=== PATIENT | female | born 1980 | race Caucasian/White ===

== ENCOUNTER 2018-07-04 11:36 | Day surgery (SDC) | payer BC, OTHER ==
[2018-07-04] MEDS ORDERED: ceFAZolin 2 GM/DEXTROSE 100 ML IV ONE (11:56)
[2018-07-04] MEDS ORDERED: LIDOCAINE 1% 2 ML INJ ID PRN (11:56)
[2018-07-04] MEDS ORDERED: LR 1,000 ML IV ONE (11:56)
--- NOTE | 2018-07-04 11:57 | PDHPUP ---
History & Physical Update H&P update statement: This history and physical update is based on an assessment of the patient which was completed after admission or registration (within 24 hours), but prior to the surgery/procedure. H&P update: H&P reviewed & patient examined, no change in patient's condition since H&P completed
[2018-07-04] MEDS ORDERED: BUPIVACAINE/EPI 0.5% 30 ML SDV ONE (12:39)
[2018-07-04] MEDS ORDERED: MIDAZOLAM 2 MG/2 ML VIAL IVP ONE (12:51)
[2018-07-04] MEDS ORDERED: MIDAZOLAM 2 MG/2 ML VIAL ONE (12:52)
--- NOTE | 2018-07-04 12:53 | PDANEPAE ---
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 - still can have symptoms with exercise but no MDI or treatment - Neurologic History Hx Cerebrovascular Accident: No Hx Seizures: No Hx Dementia: No - Endocrine History Hx Diabetes: No Obesity: moderate - Renal History Hx Renal Disorders: No - Liver History Hx Hepatic Disorders: No - Neurological & Psychiatric Hx Hx Neurological and Psychiatric Disorders: No - Cancer History Hx Cancer: No - Congenital Disorder History Hx Congenital Disorders: No - GI History GERD: no Hx Gastrointestinal Disorders: No Gastrointestinal History Comment: states has had some intermittent bouts of diarrhea/constipation since hernia appeared but nothing chronic - Other Health History Other Health History: wears glasses - Chronic Pain History Chronic Pain: No - Surgical History Prior Surgeries: x3. ectopic surgery. wisdom teeth extraction ANE Review of Systems Review of Systems: - Exercise capacity METS (RN): 4 METS ANE Patient History - Allergies Allergies/Adverse Reactions: morphine Allergy (Verified 07/04/18 12:22) Vomiting, doesnt heal shellfish derived Allergy (Verified 07/02/18 11:52) Vomiting chromic sutures Allergy (Uncoded 07/02/18 11:52) sutured area wouldn't heal, extreme scarring CT Contrast Allergy (Uncoded 07/02/18 11:52) Swelling/neck,face,throat - Home Medications Home medications: home medication list seen and reviewed Home Medications: NK [No Known Home Meds] 07/02/18 [Last Taken Unknown] - NPO status NPO Status: no food or drink >8 hours NPO Since - Liquids (Date): 07/04/18 NPO Since - Liquids (Time): 10:00 NPO Since - Solids (Date): 07/03/18 NPO Since - Solids (Time): 21:30 - Anes Hx Anes Hx: no prior problems - Smoking Hx Smoking Status: Never smoked - Family Anes Hx Family Hx Anesthesia Complications: none ANE Labs/Vital Signs - Vital Signs Blood Pressure: 123/80 Heart Rate: 73 Respiratory Rate: 16 O2 Sat (%): 98 Height: 149.86 cm Weight: 79.379 kg ANE Physical Exam - Airway Neck exam: FROM Mallampati Score: Class 2 Mouth exam: normal dental/mouth exam - Pulmonary Pulmonary: no respiratory distress, no rales or rhonchi, clear to auscultation - Cardiovascular Cardiovascular: regular rate and rhythym, no murmur, rub, or gallop - ASA Status ASA Status: I ANE Anesthesia Plan Anesthesia Plan: general endotracheal anesthesia
[2018-07-04] MEDS ORDERED: LIDOCAINE 2% 2 ML INJ ONE (13:05)
[2018-07-04] MEDS ORDERED: PROPOFOL 200 MG/20 ML VIAL ONE (13:05)
[2018-07-04] MEDS ORDERED: fentaNYL 100 MCG/2 ML INJ ONE ×3 (13:05→16:34)
[2018-07-04] MEDS ORDERED: DEXAMETHASONE 4 MG/ML VIAL ONE ×2 (13:06)
[2018-07-04] MEDS ORDERED: ROCURONIUM 50 MG/5 ML VIAL ONE ×2 (13:06→14:46)
[2018-07-04] MEDS ORDERED: ONDANSETRON 4 MG/2 ML VIAL ONE ×2 (13:06→15:40)
[2018-07-04] MEDS ORDERED: KETOROLAC 30 MG/1 ML SDV ONE (13:06)
[2018-07-04] MEDS ORDERED: GLYCOPYRROLATE 0.2 MG/1 ML VIAL ONE ×2 (13:22→15:26)
[2018-07-04] MEDS ORDERED: HYDROCODONE/APAP 5/325 TAB PO PRN (14:19)
[2018-07-04] MEDS ORDERED: ACETAMINOPHEN 500 MG TAB PO PRN (14:19)
[2018-07-04] MEDS ORDERED: NALOXONE HCL 0.4 MG/ML INJ IVP PRN (14:19)
[2018-07-04] MEDS ORDERED: MEPERIDINE 25 MG/0.5 ML AMP IVP PRN (14:19)
[2018-07-04] MEDS ORDERED: DIAZEPAM 5 MG/ML 1 ML SYR IVP PRN (14:19)
[2018-07-04] MEDS ORDERED: PROMETHAZINE HCL 25 MG/ML INJ IVP PRN (14:19)
[2018-07-04] MEDS ORDERED: ONDANSETRON 4 MG/2 ML VIAL IVP PRN (14:19)
--- NOTE | 2018-07-04 15:32 | POSTOPPROG ---
Post Op Note Date of Operation: 07/04/18 Surgeon: Jeffrey Santana Foundry Finisher: Ros Matt NP Anesthesiologist: Suni Anesthesia: GET(General Endotracheal) Pre-op Diagnosis: Ventral hernia, Diastasis Post-op Diagnosis: Ventral hernia x2, Diastasis Procedure: Robotic assisted ventral hernia repair c diastasis repair Findings: 1cm umblical defect, 3cm supraumbilical defect Inf/Abcess present in the surg proc area at time of surgery?: No EBL: Minimal
--- NOTE | 2018-07-04 15:42 | POSTANESTH ---
Post Anesthetic Evaluation Cardiovascular Status: Normal, Stable, Similar to Pre-Op Cond Respiratory Status: Normal, Stable, Similar to Pre-op Cond. Level of Consciousness/Mental Status: Can Participate in Eval, Mildly Sleepy, Arousable Pain Control: Adequate, Prn Tx Ordered Nausea/Vomiting Control: Inadeq, Add Tx Reqired Complications Possibly Related to Anesthesia: None Noted
[2018-07-04] MEDS: fentaNYL 100 MCG/2 ML INJ IVP PRN ×3 (15:44→16:35)
[2018-07-04] MEDS: LR 500 ML IV PRN ×2 (15:44→16:01)
[2018-07-04] MEDS ORDERED: oxyCODONE IR 5 MG TAB ONE ×2 (16:03→16:08)
[2018-07-04] MEDS ORDERED: ACETAMINOPHEN 500 MG TAB ONE (16:03)
[2018-07-04] MEDS: oxyCODONE IR 5 MG TAB PO PRN ×2 (16:05→16:08)
[2018-07-04 17:31] VITALS: BP 109/61
--- NOTE | 2018-07-11 14:49 | GOP ---
DATE OF OPERATION: 07/04/2018 SURGEON: Jeffrey Santana MD [employer] DEPARTMENT MANAGER: Ros Pang NP ANESTHESIA: General endotracheal ANESTHESIOLOGIST: Javier Culp MD PREOPERATIVE DIAGNOSIS: Ventral hernia and abdominal diastasis. POSTOPERATIVE DIAGNOSIS: Ventral hernia x2 with abdominal diastasis. PROCEDURE PERFORMED: Robotic-assisted ventral hernia repair with imbrication of diastasis. FINDINGS: There was a 1 cm abdominal umbilical defect and a 3 cm defect superior to this. The diast asis measured approximately 3 cm and went from the xiphoid down to the pubis. SPECIMENS: None. ESTIMATED BLOOD LOSS: 5 cc. DESCRIPTION OF PROCEDURE: The patient was greeted in the preoperative suite. Once again, risks, isra efits, and alternatives were discussed. The consent was signed. She was then brought back to the op erative suite, placed on the OR table in supine position. After all anesthesia machines including SC Ds were on and functioning, [facility] time-out was performed. After successful induc tion of general anesthesia, the patient's abdomen was prepped and draped in typical sterile fashion. I commenced the procedure by making a stab incision in the left upper quadrant through which the Tello ess needle was passed. I achieved pneumoperitoneum to 15 mmHg which was well tolerated by the patien t. Once this was done, I initially inserted an 8 mm trocar in the left upper quadrant. Once success fully in the abdomen, I placed 2 additional 8 mm trocars, one in the left lower quadrant and one in t he midline in the left abdomen. Both of these were done under direct visualization. The robot was t hen successfully docked. I did have to take part of the falciform and the peritoneum down in order t o visualize the defect on the cranial end. Once the entire diastasis was identified, I turned my att ention toward the patient's mid abdomen. There was an approximate 1 cm defect at the level of the um bilicus. Just superior to this, there was a 3 cm defect with a tissue bridge in between it, giving a Vietnamese cheese defect. I turned my attention first toward these defects using a #1 Stratafix suture I successfully reapproximated the umbilical and the supraumbilical defects, noting excellent fascial r eapproximation under minimal tension. I then turned my attention toward imbrication of the diastasis . Starting at the level of the xiphoid, I identified the 2 edges of the rectus and sewed the posteri or sheath together in a craniocaudal fashion. I stopped at the level of the umbilicus, inserted the 2nd suture inferiorly, and ran this to the midline as well. This overlapped somewhat. This showed g ood overlap and complete resolution of the diastasis. I found no other significant findings. Pneumo peritoneum was then evacuated. I removed my ports and closed the skin with Monocryl. Dermabond was placed. The patient was then extubated in the operative suite and taken to the PACU in satisfactory condition. DRAINS: None. COUNTS: All counts were reported as correct x2. /[id number]/MODL
== END 2018-07-04 17:58 | disposition home or self-care (01) ==
LOC: FSGY 11:36
PROVIDERS: ATTEND Surgery
DX: K43.9 Ventral hernia without obstruction or gangrene (principal); M62.08 Separation of muscle (nontraumatic), other site; Z87.09 Personal history of other diseases of the respiratory system
CPT/HCPCS: J0690; J1100; J1885; J2250; J2405; J2704; J3010

== ENCOUNTER 2018-07-08 07:10 | Inpatient (IN) | payer OTHER ==
--- NOTE | 2018-07-08 07:39 | EDPHY ---
H & P Stated Complaint: n/v s/p umbilical hernia surgery Time Seen by Provider: 07/08/18 07:38 - Personal History LMP (Females 10-55): 22-28 Days Ago Current Tetanus/Diphtheria Vaccine: Unsure Current Tetanus Diphtheria and Acellular Pertussis (TDAP): Unsure - Medical/Surgical History Hx Asthma: No Hx Chronic Respiratory Disease: No Hx Diabetes: No Hx Cardiac Disease: No Hx Renal Disease: No Hx Cirrhosis: No Hx Alcoholism: No Hx HIV/AIDS: No Hx Splenectomy or Spleen Trauma: No Other PMH: umbilical hernia repair, x 3 , ectopic , asthma - Social History Smoking Status: Never smoked Constitutional: Initial Vital Signs Temperature (C) 37.3 C 07/08/18 07:14 Heart Rate 93 07/08/18 07:14 Respiratory Rate 20 07/08/18 07:14 Blood Pressure 126/85 H 07/08/18 07:14 O2 Sat (%) 95 07/08/18 07:14 O2 Delivery Mode Room Air Allergies/Adverse Reactions: morphine Allergy (Verified 07/08/18 07:14) Vomiting, doesnt heal shellfish derived Allergy (Verified 07/08/18 07:14) Vomiting chromic sutures Allergy (Uncoded 07/08/18 07:14) sutured area wouldn't heal, extreme scarring CT Contrast Allergy (Uncoded 07/08/18 07:14) Swelling/neck,face,throat Home Medications: Medication Instructions Recorded LORazepam [Ativan (*)] 1 mg PO Q6HRS PRN 07/08/18 Ondansetron Odt [Zofran Odt 4 mg 4 mg PO Q4HRS PRN 07/08/18 (*)] oxyCODONE IR [Oxycodone Ir (*)] 5 mg PO Q6HRS PRN 07/08/18 Medical Decision Making - Diagnostics Imaging Results: Imaging Impressions Abdomen/Pelvis CT 07/08/18 07:45 Impression: 1. Small bowel obstruction secondary to tiny periumbilical hernia, adhesions, or other etiology. 2. Tiny pleural effusions with basilar atelectasis. 3. Mild subcutaneous stranding in the left abdomen, which could be related to postoperative hemorrhage, with no focal hematoma. 4. Additional findings as above. Findings discussed with Rogelio Kowalski MD on 07/08/2018 at 8:54 a.m. Attention: This examination does not use radiographic contrast and provides only a limited evaluation of the abdomen, pelvis and retroperitoneum. Imaging: Discussed imaging studies w/ orthopedically impaired teacher Radiologist ED Course/Re-evaluation: CHIEF COMPLAINT: Nausea HISTORY OF PRESENT ILLNESS: This patient is a 37 year old female who is s/p robotic assisted ventral hernia repair with diastasis repair on 07/04/[address] Santana. Initially when she arrived home she returned to a normal diet. She began vomiting on Saturday evening and was evaluated at the [facility] ER. Per her at bedside, blood work and plain x-rays of the abdomen were "unremarkable". She was discharged home with Tete. Dr. Valenzuela, general surgeon, checked in with the patient by phone on Saturday morning and switched her from narcotic pain medications to lorazepam, and a liquid diet. The patient reports she had not had a bowel movement or passed gas. Late on Saturday evening the patient developed a fever of 100.5. Later that evening, she began vomiting again, and this morning, she presents for evaluation. She had not noted any erythema or discharge around the surgical sites. She does complain of abdominal discomfort, primarily periumbilical. No chest pain, shortness of breath, syncope, or other associated symptoms. REVIEW OF SYSTEMS: A comprehensive 10 system review of systems is otherwise negative aside from elements mentioned in the history of present illness and medical decision making. PHYSICAL EXAM: HR, BP, O2 Sat, RR. Temp noted General Appearance: Alert, well hydrated, appropriate, and non-toxic appearing. Head: Atraumatic without scalp tenderness or obvious injury Eyes: Pupils equal, round, reactive to light and accommodation, EOMI, no trauma , no injection. Ears: Clear bilaterally, no perforation, normal landmarks Nose: Atraumatic, no rhinorrhea, clear. Throat: There is no erythema or exudates, no lesions, normal tonsils, mucus membranes moist. Neck: Supple, 2+ carotid upstroke, nontender, no lymphadenopathy. Respiratory: No retractions, no distress, no wheezes, and no accessory muscle use. Lungs are clear to auscultation bilaterally. Cardiovascular: Regular rate and rhythm, no murmurs, rubs, or gallops. Bilateral carotid, radial, dorsalis pedis, and posterior tibial pulses intact. Good capillary refill all extremities. Gastrointestinal: Abdomen is distended, diffusely tender. There are well- healing laparoscopic incisions with no evidence of erythema, discharge, or warmth. Musculoskeletal: Normal active ROM of all extremities, atraumatic. Neurological: Alert, appropriate, and interactive. The patient has normal DTRs and non-focal cranial nerves, motor, sensory, and cerebellar exam. Skin: No rashes, good turgor, no nodules on palpation. Past medical history: Asthma. Ectopic . Past surgical history: Umbilical hernia repair. Cesarian section x 3. Family history: Noncontributory. Social history: . at bedside. Employed. DIFFERENTIAL DIAGNOSIS: The differential diagnosis for the patient's abdominal pain included but was not limited to small bowel obstruction, hernia, ovarian cyst, pelvic inflammatory disease, ovarian torsion, urinary tract infection, ectopic , cholecystitis, and appendicitis. MEDICAL DECISION [id number] y/o female 4 days s/p ventral hernia and diastasis repair presents with abdominal discomfort, nausea, and vomiting. No outward evidence of infection, there are well-healing laparoscopic incisions. Abdomen is distended and diffusely tender to palpation. Patient states she is allergic to IV contrast. Plan for CT abdomen/pelvis without contrast for further evaluation. IV established. Plan to administer 1mg IV Dilaudid, 30mg IV Toradol, and 4mg IV Zofran for symptom relief. Plan for labs including CBC, chemistries, liver, lipase. Consulted with Dr. Santana, general surgeon. He will evaluate the patient. 08:[address] Cervantes, radiologist. CT shows evidence of small bowel obstruction. 9:17 Dr. Santana accepts admission for perioperative management for the patient's small bowel obstruction. IV access obtained 10:30 but unable to draw bloods. - Data Points Medications Given: Discontinued Medications Hydromorphone HCl (Dilaudid) 1 mg IVP EDNOW ONE Stop: 07/08/18 07:46 Last Admin: 07/08/18 08:19 Dose: 1 mg Sodium Chloride (Ns) 1,000 mls @ 0 mls/hr IV EDNOW ONE; Wide Open PRN Reason: Protocol Stop: 07/08/18 07:46 Last Admin: 07/08/18 08:20 Dose: 1,000 mls Ketorolac Tromethamine (Toradol) 30 mg IVP EDNOW ONE Stop: 07/08/18 07:46 Last Admin: 07/08/18 08:20 Dose: 30 mg Ondansetron HCl (Zofran) 4 mg IVP EDNOW ONE Stop: 07/08/18 07:46 Last Admin: 07/08/18 08:20 Dose: 4 mg Departure - Departure Disposition: [facility] Inpatient Acute Clinical Impression: Small bowel obstruction Condition: Fair Report Scribed for: Rogelio Kowalski Report Scribed by: Radha Martin Date of Report: 07/08/18 Time of Report: 09:51
[2018-07-08] MEDS ORDERED: KETOROLAC 30 MG/1 ML SDV IVP ONE (07:45)
[2018-07-08] MEDS ORDERED: NS 1,000 ML IV ONE (07:45)
[2018-07-08] MEDS ORDERED: HYDROmorphONE/DILAUDID 2 MG/ML INJ IVP ONE (07:45)
[2018-07-08] MEDS ORDERED: ONDANSETRON 4 MG/2 ML VIAL IVP ONE (07:45)
[2018-07-08] MEDS ORDERED: HYDROmorphONE/DILAUDID 1 MG/ML INJ IVP PRN (09:17)
[2018-07-08] MEDS ORDERED: PROMETHAZINE HCL 25 MG/ML INJ IVP PRN (09:17)
[2018-07-08] MEDS ORDERED: ONDANSETRON 4 MG/2 ML VIAL IVP PRN ×2 (09:17→14:42)
[2018-07-08] MEDS ORDERED: ACETAMINOPHEN 325 MG TAB PO PRN (09:17)
[2018-07-08] MEDS ORDERED: ONDANSETRON DISINTEGRATING 4 MG TAB PO PRN (09:17)
--- NOTE | 2018-07-08 09:38 | PDGENHP ---
History and Physical - Chief Complaint abdominal pain with nausea and vomiting - History of Present Illness 37yo F who underwent robotic assisted ventral hernia and diastasis repair last Saturday. Had some obstructive type symptoms Saturday night and was seen at [facility] where plain films were ordered along with bloodwork. These labs were reassuring and she was subsequently sent home. Since then felt well for about a day but started to get worse last night. Called in this AM and was directed to the ED for workup. In the ED, c/o focal periumbilical pain with nausea and vomiting which has been colicky. Denies fevers or chills. History Information - Allergies/Home Medication List Allergies/Adverse Reactions: morphine Allergy (Verified 07/08/18 07:14) Vomiting, doesnt heal shellfish derived Allergy (Verified 07/08/18 07:14) Vomiting chromic sutures Allergy (Uncoded 07/08/18 07:14) sutured area wouldn't heal, extreme scarring CT Contrast Allergy (Uncoded 07/08/18 07:14) Swelling/neck,face,throat Home Medications: Lorazepam 07/08/18 [Last Taken Unknown] Ondansetron 07/08/18 [Last Taken Unknown] I have personally reviewed and updated: medical history, surgical history - Surgical History Additional surgical history: recent robotic assisted ventral hernia and diastasis repair - Social History Smoking Status: Never smoked Review of Systems Review of Systems: ROS: 10pt was reviewed & negative except for what was stated in HPI & below Physical Exam Physical Exam: Temp Pulse Resp BP Pulse Ox 37.3 C 93 20 126/85 H 95 07/08/18 07:14 07/08/18 07:14 07/08/18 07:14 07/08/18 07:14 07/08/18 07:14 Constitutional: appears nourished, not in pain, other (mild distress) Eyes: PERRL, anicteric sclera, EOMI Ears, Nose, Mouth, Throat: moist mucous membranes, hearing normal, ears appear normal, no oral mucosal ulcers Cardiovascular: regular rate and rhythym, no murmur, rub, or gallop, No edema Respiratory: no respiratory distress, no rales or rhonchi, clear to auscultation Gastrointestinal: other (soft, distended, TTP in mid abdomen, no rebound) Genitourinary: no bladder fullness, no bladder tenderness Skin: warm, normal color, no rashes or abrasions, no fluctuance, no induration, No mottled Musculoskeletal: full muscle strength, no muscle tenderness, normal joint ROM, no joint effusions Psychiatric: interacting appropriately, not anxious, not encephalopathic, thought process linear Lymph, Heme, Immunologic: no cervical LAD, no supraclavicular LAD Lab Data & Imaging Review Visualized and Interpreted imaging results: Yes Interpretation: CT: SBO at umbilicus c transition point, no free air or fluid Assessment & Plan Assessment: SBO s/p ventral hernia Plan: NGT decompression in ED fluid hydration given findings on CT scan, will proceed to OR for reduction. Discussed the surgery with the patient and
--- NOTE | 2018-07-08 11:42 | PDMN ---
Medical Necessity Medical necessity: MCG: M210 intestinal obstruction: 2 days S/P ventral hernia repair , 4 days ago, CT shows SBO secondary to periumbilical hernia, adhesions or other etiology, - tiny pleural effusions with basilar atelectasis, mild subcutaneous stranding in L abdomen -- NGT placed, NPO, OR pend.
[2018-07-08] MEDS: NS W/ 20 KCl/L 1,000 ML IV SCH ×2 (11:43→23:48)
[2018-07-08] MEDS ORDERED: ceFAZolin 2 GM/DEXTROSE 100 ML IV ONE (13:30)
[2018-07-08] MEDS ORDERED: LR 1,000 ML IV ONE (13:38)
[2018-07-08] MEDS ORDERED: MIDAZOLAM 2 MG/2 ML VIAL ONE (13:46)
[2018-07-08] MEDS ORDERED: fentaNYL 100 MCG/2 ML INJ ONE ×2 (13:46→14:22)
[2018-07-08] MEDS ORDERED: PROPOFOL/EMULSION 500 MG/50 ML BOTTLE IV ONE (13:47)
[2018-07-08 13:50] LABS: PLATELET COUNT 244 10^3/uL (150-400)
[2018-07-08] MEDS ORDERED: BUPIVACAINE/EPI 0.5% 30 ML SDV ONE (14:21)
--- NOTE | 2018-07-08 14:41 | PDANEPAE ---
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 - still can have symptoms with exercise but no MDI or treatment - Neurologic History Hx Cerebrovascular Accident: No Hx Seizures: No Hx Dementia: No - Endocrine History Hx Diabetes: No - Renal History Hx Renal Disorders: No - Liver History Hx Hepatic Disorders: No - Neurological & Psychiatric Hx Hx Neurological and Psychiatric Disorders: No - Cancer History Hx Cancer: No - Congenital Disorder History Hx Congenital Disorders: No - GI History Hx Gastrointestinal Disorders: No Gastrointestinal History Comment: states has had some intermittent bouts of diarrhea/constipation since hernia appeared but nothing chronic - Other Health History Other Health History: wears glasses - Chronic Pain History Chronic Pain: No - Surgical History Prior Surgeries: x3. ectopic surgery. wisdom teeth extraction ANE Review of Systems Review of Systems: ANE Patient History - Allergies Allergies/Adverse Reactions: morphine Allergy (Verified 07/08/18 07:14) Vomiting, doesnt heal shellfish derived Allergy (Verified 07/08/18 07:14) Vomiting chromic sutures Allergy (Uncoded 07/08/18 07:14) sutured area wouldn't heal, extreme scarring CT Contrast Allergy (Uncoded 07/08/18 07:14) Swelling/neck,face,throat - Home Medications Home Medications: LORazepam [Ativan (*)] 1 mg PO Q6HRS PRN 07/08/18 [Last Taken Unknown] Ondansetron Odt [Zofran Odt 4 mg (*)] 4 mg PO Q4HRS PRN 07/08/18 [Last Taken Unknown] oxyCODONE IR [Oxycodone Ir (*)] 5 mg PO Q6HRS PRN 07/08/18 [Last Taken Unknown] - NPO status NPO Since - Liquids (Date): 07/08/18 NPO Since - Liquids (Time): 05:00 NPO Since - Solids (Date): 07/07/18 - Smoking Hx Smoking Status: Never smoked - Family Anes Hx Family Hx Anesthesia Complications: none ANE Labs/Vital Signs - Labs Result Diagrams: 07/08/18 13:30 07/08/18 13:30 - Vital Signs Blood Pressure: 132/76 Heart Rate: 93 Respiratory Rate: 16 O2 Sat (%): 95 Height: 149.86 cm Weight: 79.379 kg ANE Physical Exam - Airway Neck exam: FROM Mallampati Score: Class 1 Mouth exam: normal dental/mouth exam - Pulmonary Pulmonary: no respiratory distress, no rales or rhonchi, clear to auscultation - Cardiovascular Cardiovascular: regular rate and rhythym, no murmur, rub, or gallop, tachycardia - ASA Status ASA Status: II, E ANE Anesthesia Plan Anesthesia Plan: general endotracheal anesthesia (rapid sequence induction)
[2018-07-08] MEDS ORDERED: fentaNYL 100 MCG/2 ML INJ IVP PRN (14:42)
[2018-07-08] MEDS ORDERED: DEXAMETHASONE 4 MG/ML VIAL IVP PRN (14:42)
[2018-07-08] MEDS ORDERED: METOCLOPRAMIDE 10 MG/2 ML VIAL IVP PRN (14:42)
[2018-07-08] MEDS ORDERED: LR 500 ML IV PRN (14:42)
[2018-07-08] MEDS ORDERED: ALBUTEROL 3 ML DEYVIAL IH PRN (14:42)
[2018-07-08] MEDS ORDERED: HYDROmorphONE/DILAUDID 2 MG/ML INJ IVP PRN (14:42)
[2018-07-08] MEDS ORDERED: NALOXONE HCL 0.4 MG/ML INJ IVP PRN (14:42)
[2018-07-08] MEDS ORDERED: ONDANSETRON 4 MG/2 ML VIAL ONE (15:36)
--- NOTE | 2018-07-08 15:38 | POSTOPPROG ---
Post Op Note Date of Operation: 07/08/18 Surgeon: Jeffrey Santana Van Helper: Lia Gordillo MD Anesthesiologist: Zahraa Anesthesia: GET(General Endotracheal) Pre-op Diagnosis: SBO Post-op Diagnosis: SBO Procedure: ex-laparoscopy reduction of SBO Findings: SBO at level of umbilicus adjacent to imbrication Inf/Abcess present in the surg proc area at time of surgery?: No EBL: Minimal
[2018-07-08] MEDS ORDERED: DEXAMETHASONE 4 MG/ML VIAL ONE (15:45)
[2018-07-08] MEDS ORDERED: PROMETHAZINE HCL 25 MG/ML INJ ONE (15:50)
[2018-07-08] MEDS ORDERED: HYDROmorphONE/DILAUDID 2 MG/ML INJ ONE (15:51)
[2018-07-08] MEDS: PROMETHAZINE HCL 25 MG/ML INJ IVP PRN ×2 (15:55→16:09)
[2018-07-08] MEDS: HYDROmorphONE/DILAUDID 2 MG/ML INJ IVP PRN (21:16)
[2018-07-09] MEDS: HYDROmorphONE/DILAUDID 2 MG/ML INJ IVP PRN ×4 (02:48→13:45)
[2018-07-09] MEDS: NS W/ 20 KCl/L 1,000 ML IV SCH (07:58)
[2018-07-09] MEDS ORDERED: BENZOCAINE UNIT DOSE SPRAY HURRICAINE MM PRN (08:17)
[2018-07-09] MEDS: CEPACOL LOZENGE PO PRN ×4 (08:44→19:47)
--- NOTE | 2018-07-09 09:20 | POSTANESTH ---
Post Anesthetic Evaluation Cardiovascular Status: Normal, Stable, Similar to Pre-Op Cond Respiratory Status: Normal, Stable, Similar to Pre-op Cond. Level of Consciousness/Mental Status: Mildly Sleepy, Arousable Pain Control: Adequate, Prn Tx Ordered Nausea/Vomiting Control: Adequate, Prn Tx Ordered Complications Possibly Related to Anesthesia: None Noted
--- NOTE | 2018-07-09 09:33 | ASMTCMCOM ---
CM Note CM Note Notes: Chart reviewed, pt came to the ER for abdominal pain. Last week she had surgery for ventral hernia repair, she is admitted with a SBO. Pt lives at home with her and is normally independent, anticipate she will dc home when medically stable. Not therapies ordered, CM available for any changes. DC Plan: Independent Date Signed: 07/09/2018 09:33 AM Electronically Signed By:Mikaela Fernandez RN
[2018-07-09] MEDS: KETOROLAC 15 MG/1 ML SDV IVP SCH ×3 (09:55→21:37)
--- NOTE | 2018-07-09 10:07 | SOAPPROG ---
SOAP Progress Note Assessment/Plan: Assessment: POD # 1 s/p re-exploration and repair of ventral hernia Overall doing well Gas pains Minimal NG output - will clamp S: No nausea, possible gas O: Soft, BS present but not overly active, Reactive erythema around larger incisions from extraction Plan: 07/09/18 10:03 Objective: Vital Signs Temp Pulse Resp BP Pulse Ox 37.0 C 80 12 129/77 H 94 07/09/18 07:46 07/09/18 07:46 07/09/18 07:46 07/09/18 07:46 07/09/18 03:17 Laboratory Results 07/08/18 13:30 07/08/18 13:30 07/08/18 07/09/18 07/10/18 05:59 05:59 05:59 Intake Total 3375 Output Total 855 Balance 2520 ICD10 Worksheet Patient Problems: Problems Problem Status Onset Small bowel obstruction Acute
[2018-07-10] MEDS: NS W/ 20 KCl/L 1,000 ML IV SCH ×2 (03:06→21:21)
[2018-07-10] MEDS: KETOROLAC 15 MG/1 ML SDV IVP SCH ×4 (03:06→21:22)
--- NOTE | 2018-07-10 09:26 | SOAPPROG ---
SOAP Progress Note Assessment/Plan: Assessment: 37yo F s/p ventarl hernia repair and diastasis imbrication, takeback for SBO - VSS, HDS - her pain is well controlled - NGT with dark bilious output, did not tolerate clamp trial yesterday. Poss clamp later today - Ambulating like a champ - poss clamp trial later today, she is making good progress Plan: 07/10/18 09:24 Subjective: feels better, passing some flatus Objective: Vital Signs Temp Pulse Resp BP Pulse Ox 36.8 C 69 14 130/87 H 94 07/10/18 07:43 07/10/18 07:43 07/10/18 07:43 07/10/18 07:43 07/10/18 04:00 Laboratory Results 07/08/18 13:30 07/08/18 13:30 07/09/18 07/10/18 07/11/18 05:59 05:59 05:59 Intake Total 3375 Output Total 855 1750 Balance 2520 -1750 ICD10 Worksheet Patient Problems: Problems Problem Status Onset Small bowel obstruction Acute
[2018-07-10] MEDS: CEPACOL LOZENGE PO PRN (18:57)
[2018-07-11] MEDS: KETOROLAC 15 MG/1 ML SDV IVP SCH ×2 (03:18→10:48)
[2018-07-11] MEDS ORDERED: KETOROLAC 15 MG/1 ML SDV IVP PRN (09:43)
--- NOTE | 2018-07-11 10:28 | ASMTCMCOM ---
CM Note CM Note Notes: Pt not yet ready for dc. She did not do well with a trial clamp of her NG, may try again today. She is otherwise independent and will dc home w/support of her when medically stable. CM available for any changes. DC Plan: Independent Date Signed: 07/11/2018 10:28 AM Electronically Signed By:Mikaela Fernandez RN
[2018-07-11 11:44] VITALS: BP 122/68
--- NOTE | 2018-07-11 14:26 | ASMTLACE ---
LACE Length of stay for Answers: 2 days current admission Acuity / Level of Answers: Yes Care: Did the patient have an inpatient admission? Comorbidities - select Answers: Other Notes: Asthma all that apply # of Emergency department Answers: 1-2 visits in the last 6 months Score: 7 Date Signed: 07/11/2018 02:25 PM Electronically Signed By:Mikaela Fernandez RN
--- NOTE | 2018-07-11 14:54 | GOP ---
DATE OF OPERATION: 07/08/2018 SURGEON: Jeffrey Santana MD WOOD CASKET ASSEMBLER: Lia Gordillo MD ANESTHESIA: General endotracheal. ANESTHESIOLOGIST: Margarita Vital MD. PREOPERATIVE DIAGNOSIS: Small-bowel obstruction. POSTOPERATIVE DIAGNOSIS: Small-bowel obstruction. PROCEDURE PERFORMED: Exploratory laparoscopy with reduction of small bowel obstruction and repair of umbilical defect. FINDINGS: There was a small area where the fascia had come apart from previous repair, just above th e umbilicus. A portion of small bowel had worked its way into this, and subsequently caused a bowel obstruction. This was successfully reduced and the defect was repaired. SPECIMENS: None. ESTIMATED BLOOD LOSS: 5 cc. DESCRIPTION OF PROCEDURE: The patient was greeted in the preoperative suite. Once again, risks, isra efits, and alternatives were discussed. Consent was signed. She was then brought back to the operat avila suite, placed on the OR table in a supine position. After all anesthesia machines including SCDs were on and functioning, a [employer] time-out was performed. After successful induc tion of general anesthesia, the patient's abdomen was prepped and draped in typical sterile fashion. I commenced the procedure by making a cutdown in the right upper quadrant. The Veress needle was suc cessfully passed into the abdomen and pneumoperitoneum to 15 mmHg was achieved and well tolerated by the patient. I inserted a 5 mm trocar at this site. Once successfully in the abdomen, I could ident carson the secondary small bowel obstruction from the small bowel up and the fascial defect just superio r to the umbilicus. I placed an additional 5 mm trocar in the left lower quadrant and successfully r educed this with minimal tension. I inspected the portion of bowel that was within this defect and i t had no worrisome features. I then turned my attention toward closing this defect which had opened. I made a small skin incision just above the umbilicus and I passed the Gus Thomasen fascial closure device with an [address] itch in a [id number] fashion on both sides of the fascial defect and brought it together, noting excellent fascial reapproximation under minimal tension. I did this 3 separate times to completely close that defect. Once that was done, the peritoneal flap that I had made previously was somewhat b alled up in the right upper quadrant and I successfully removed this through the right upper quadrant as well. I then inspected the remainder of the bowel and found no other significant features. I ev acuated my pneumoperitoneum. I did have to close my right upper quadrant port site with an 0 Vicryl stitch, noting excellent fascial reapproximation. The skin was then closed with Monocryl and Dermabo nd was placed. The patient was then extubated in the operative suite and taken to PACU in satisfacto ry condition. DRAINS: None. COUNTS: All counts were reported as correct x2. /[id number]/MODL
--- NOTE | 2018-07-11 15:09 | ASMTCMCOM ---
CM Note CM Note Notes: Pt had NG removed and has been discharged. She will dc home w/support of . DC Plan: Independent Date Signed: 07/11/2018 02:26 PM Electronically Signed By:Mikaela Fernandez RN
--- NOTE | 2018-07-14 19:37 | PDDCSUM ---
Discharge Summary Discharge Summary: DISCHARGE SUMMARY Date of Admission July 08 Date of Discharge July 11 DISCHARGE DIAGNOSES -small-bowel obstruction HOSPITAL COURSE The patient was admitted from the ED and taken to the operating room where they underwent an uneventful reduction of small-bowel obstruction and repair ventral hernia. They were subsequently taken to the PACU and then the general medical floor. The hospital course was uneventful, their diet was advanced to a regular diet which was well tolerated and their pain was well controlled. They were discharged home in stable condition on the afternoon of the DISCHARGE MEDICATIONS No new medications DISPOSITION Home FOLLOW UP Follow up with me in the office in 10-14 days for a general post-operative visit
== END 2018-07-11 17:33 | disposition home or self-care (01) | DRG 337 ==
LOC: F3E 11:27
PROVIDERS: ADMIT Surgery; ATTEND Surgery
PROC: 0WQF4ZZ Repair Abdominal Wall, Percutaneous Endoscopic Approach (ICD-10-PCS; principal; 2018-07-08 15:30)
PROC: 0DN84ZZ Release Small Intestine, Percutaneous Endoscopic Approach (ICD-10-PCS; principal; 2018-07-08 15:30)
DX: K91.30 Postprocedural intestinal obstruction, unspecified as to partial versus complete (principal); M62.08 Separation of muscle (nontraumatic), other site; E86.9 Volume depletion, unspecified
CPT/HCPCS: 96374; J0690; J1100; J1170; J1885; J2250; J2405; J2550; J2704; J3010

== ENCOUNTER → 2018-09-22 | Outpatient (CLI) | payer OTHER | LOC: FIMAGING 15:40 | PROVIDERS: ATTEND Surgery | DX: M62.08 Separation of muscle (nontraumatic), other site (principal); K59.00 Constipation, unspecified ==